=== PATIENT | female | born 1985 | race Caucasian/White ===

== ENCOUNTER 2018-02-20 11:54 | Emergency (ER) | payer SELFPAY ==
[~2018-02-20] VITALS: Ht 157.5 cm; Wt 64.0 kg
[~2018-02-20 11:54] MED LIST: ACETTAB3 OR; AMOXICILLIN500 MG OR; AMOXICILLIN500 MG PO; BACTRIM DS1 TAB OR; BACTRIM DS1 TAB PO; BACTROBAN2 % EX; BENTYL10 MG OR; BENTYL10 MG PO; BENTYL20 MG OR; CIPRO500 MG OR; CLINDAMYCIN HC150 MG PO; DOXYCYCLINE20 MG OR; ELIMITE5 % EX; FLEXERIL PO; KLONOPIN0.5 MG PO; LEVSIN/SL0.125 MG SL; LORTAB 10 OR; LORTAB 5 OR; LORTAB 5/3255 MG PO; LORTAB5 OR; LORTAB5 PO; MACROBID100 MG OR; MOTRIN800 MG OR; NAPROSYN500 MG OR; NAPROSYN500 MG PO; NAPROXEN250 MG PO; NAPROXEN500 MG PO; NO MEDS; ONDANSETRON4 MG OR; ONDANSETRON4 MG PO; OXYCODONE HCL5 MG PO; PENICILLN VK500 MG OR; PENICILLN VK500 MG PO; PERCOCET 5/325M1 TAB OR; PERIDEX0.12 % MT; PRENATABS OR; PRILOSEC OTC20 MG OR; PROMETHAZINE25 M1 RE; REMERON30 MG PO; REMERON45 MG PO; REMERON7.5 MG OR; TRAMADOL HCL50 MG OR; TRAMADOL HCL50 MG PO; TRINESSA OR; ULTRAM50 M1 PO; ULTRAM50 MG OR; VICODIN1 TAB OR; VICOPROFEN OR; ZOFRAN ODT8 MG PO; ZOFRAN ODT8 MG SL
[2018-02-20 13:40] VITALS: BP 134/84
== END 2018-02-20 13:40 | disposition home or self-care (01) | DRG 563 ==
LOC: ED 11:54
DX: S83.92XA Sprain of unspecified site of left knee, initial encounter (principal); I10 Essential (primary) hypertension; E78.5 Hyperlipidemia, unspecified; D68.0 Von Willebrand disease; F17.210 Nicotine dependence, cigarettes, uncomplicated; V80.010A Animal-rider injured by fall from or being thrown from horse in noncollision accident, initial encounter

== ENCOUNTER 2018-03-27 10:20 | Emergency (ER) | payer SELFPAY ==
[~2018-03-27] VITALS: Ht 157.5 cm; Wt 63.6 kg
[2018-03-27 11:00] LABS: URINE BILIRUBIN - DIPSTICK NEGATIVE (NEGATIVE); URINE BLOOD DIPSTICK NEGATIVE (NEGATIVE); URINE COLOR YELLOW; URINE GLUCOSE - DIPSTICK NEGATIVE (NEGATIVE); URINE KETONE NEGATIVE (NEGATIVE); URINE LEUK ESTERASE NEGATIVE (NEGATIVE); URINE NITRITE - DIPSTICK NEGATIVE (Negative); URINE PROTEIN - DIPSTICK NEGATIVE (NEG-TRACE); URINE SPECIFIC GRAVITY <=1.005; URINE UROBILINOGEN - DIPSTICK 0.2 E.U./dL (0.2)
[2018-03-27 11:01] LABS: HEMATOCRIT 42.2 % (37.0-47.0); HEMOGLOBIN 14.7 g/dl (12.0-16.0); IMMATURE GRANULOCYTES 0.4 % (0.0-5.0); MEAN CELL VOLUME 86.1 fL CALC (80.0-100.0); MEAN CORPUSCULAR HGB CONC 34.8 g/L CALC (32.0-36.0); NEUT# 6.26 thou/uL (2.00-7.15); RED BLOOD COUNT 4.9 mill/uL (4.20-5.60)
[2018-03-27 11:06] LABS: URINE CLARITY CLEAR
[2018-03-27 11:14] LABS: ALBUMIN 4.6 g/dL (3.2-5.0); ALKALINE PHOSPHATASE 74 u/l (38-126); AMYLASE 46 u/l (30-110); ANION GAP 14 (6-22 (CALC)); BILIRUBIN, TOTAL 0.4 mg/dL (0.0-1.4); BUN 10 mg/dL (7-17); BUN/CREATININE RATIO 13 (12-20 (CALC)); CARBON DIOXIDE 25 mmol/l (22-30); CHLORIDE 107 mmol/l (95-108); CREATININE 0.8 mg/dL (0.5-1.0); GFR > 60 ML/MIN (>=60 (CALC)); GFR FOR AFR.AMER. > 60 ML/MIN (>=60 (CALC)); LIPASE 92 u/l (23-300); POTASSIUM 4.1 mmol/l (3.5-5.1); SGOT/AST 23 u/l (14-36); SGPT/ALT 28 u/l (9-52); SODIUM 143 mmol/l (137-146); TOTAL PROTEIN 7.8 g/dL (6.3-8.2)
[2018-03-27] MEDS ORDERED: FLEXERIL PO (16:00)
[2018-03-27] MEDS ORDERED: NAPROSYN500 MG PO (16:00)
[2018-03-27 17:00] VITALS: BP 152/80
== END 2018-03-27 17:00 | disposition home or self-care (01) | DRG 556 ==
LOC: ED 10:20
PROVIDERS: Emergency Medicine
DX: M79.1 Myalgia (principal); D68.0 Von Willebrand disease; I10 Essential (primary) hypertension; E78.5 Hyperlipidemia, unspecified; F17.210 Nicotine dependence, cigarettes, uncomplicated

== ENCOUNTER 2018-04-14 15:27 | Emergency (ER) | payer SELFPAY ==
[~2018-04-14] VITALS: Ht 157.5 cm; Wt 63.0 kg
[2018-04-14] MEDS ORDERED: AMOXICILLIN500 M2 PO (15:46)
[2018-04-14] MEDS ORDERED: TORADOL PO (15:46)
[2018-04-14 15:55] VITALS: BP 141/87
== END 2018-04-14 15:55 | disposition home or self-care (01) | DRG 158 ==
LOC: ED 15:27
DX: K08.89 Other specified disorders of teeth and supporting structures (principal); I10 Essential (primary) hypertension; E78.5 Hyperlipidemia, unspecified; D68.0 Von Willebrand disease; F17.210 Nicotine dependence, cigarettes, uncomplicated

== ENCOUNTER 2019-02-14 10:29 | Emergency (ER) | payer SELFPAY ==
[~2019-02-14] VITALS: Ht 157.5 cm; Wt 70.0 kg
[~2019-02-14 10:29] MED LIST changes: +AMOXICILLIN500 M2 PO; +TORADOL PO
[2019-02-14 11:05] LABS: HEMATOCRIT 42.3 % (37.0-47.0); HEMOGLOBIN 14.3 g/dl (12.0-16.0); IMMATURE GRANULOCYTES 0.4 % (0.0-5.0); MEAN CELL VOLUME 86.5 fL CALC (80.0-100.0); MEAN CORPUSCULAR HGB 29.2 pG CALC (26.0-32.0); MEAN CORPUSCULAR HGB CONC 33.8 g/L CALC (32.0-36.0); NEUT# 4.64 thou/uL (2.00-7.15); RED BLOOD COUNT 4.89 mill/uL (4.20-5.60); RED CELL DISTRI WIDTH 11.9 % (11.5-15.5)
[2019-02-14 11:06] LABS: URINE BILIRUBIN - DIPSTICK NEGATIVE (NEGATIVE); URINE BLOOD DIPSTICK NEGATIVE (NEGATIVE); URINE COLOR YELLOW; URINE GLUCOSE - DIPSTICK NEGATIVE (NEGATIVE); URINE KETONE NEGATIVE (NEGATIVE); URINE LEUK ESTERASE NEGATIVE (NEGATIVE); URINE NITRITE - DIPSTICK NEGATIVE (Negative); URINE PROTEIN - DIPSTICK NEGATIVE (NEG-TRACE); URINE UROBILINOGEN - DIPSTICK 0.2 E.U./dL (0.2)
[2019-02-14 11:20] LABS: ALKALINE PHOSPHATASE 69 u/l (38-126); ANION GAP 15 (6-22 (CALC)); BILIRUBIN, TOTAL 0.4 mg/dL (0.0-1.4); BUN 7 mg/dL (7-17); BUN/CREATININE RATIO 10 (12-20 (CALC)); CARBON DIOXIDE 26 mmol/l (22-30); CHLORIDE 107 mmol/l (95-108); CREATININE 0.6 mg/dL (0.5-1.0); GFR > 60 ML/MIN (>=60 (CALC)); GFR FOR AFR.AMER. > 60 ML/MIN (>=60 (CALC)); SGOT/AST 28 u/l (14-36); SODIUM 144 mmol/l (137-146); TOTAL PROTEIN 8.6 g/dL (6.3-8.2)
[2019-02-14] MEDS ORDERED: LISINOPRIL10 MG PO (11:22)
[2019-02-14] MEDS ORDERED: ZOFRAN4 MG/TAB PO (13:10)
[2019-02-14 13:21] VITALS: BP 143/91
== END 2019-02-14 13:42 | disposition home or self-care (01) | DRG 392 ==
LOC: ED 10:29
PROVIDERS: Family Medicine
DX: K52.9 Noninfective gastroenteritis and colitis, unspecified (principal); I10 Essential (primary) hypertension; E78.5 Hyperlipidemia, unspecified; F17.200 Nicotine dependence, unspecified, uncomplicated
CPT/HCPCS: Q9967

== ENCOUNTER 2019-04-17 12:16 | Emergency (ER) | payer OTHER ==
[~2019-04-17] VITALS: Ht 157.5 cm; Wt 70.0 kg
[~2019-04-17 12:16] MED LIST changes: +LISINOPRIL10 MG PO; +ZOFRAN4 MG/TAB PO
[2019-04-17 13:08] VITALS: BP 183/114
[2019-04-17] MEDS ORDERED: TYLENOL # 31 TA1 PO (14:00)
== END 2019-04-17 14:10 | disposition home or self-care (01) ==
LOC: ED 12:16
DX: K02.9 Dental caries, unspecified (principal); I10 Essential (primary) hypertension; D68.0 Von Willebrand disease; F17.200 Nicotine dependence, unspecified, uncomplicated

== ENCOUNTER 2019-05-08 08:05 | Emergency (ER) | payer OTHER ==
[~2019-05-08] VITALS: Ht 157.5 cm; Wt 81.0 kg
[~2019-05-08 08:05] MED LIST changes: +TYLENOL # 31 TA1 PO
[2019-05-08 08:46] LABS: HEMATOCRIT 41.9 % (37.0-47.0); HEMOGLOBIN 14.4 g/dl (12.0-16.0); IMMATURE GRANULOCYTES 0.6 % (0.0-5.0); MEAN CELL VOLUME 85.3 fL CALC (80.0-100.0); MEAN CORPUSCULAR HGB 29.3 pG CALC (26.0-32.0); MEAN CORPUSCULAR HGB CONC 34.4 g/L CALC (32.0-36.0); NEUT# 5.34 thou/uL (2.00-7.15); RED BLOOD COUNT 4.91 mill/uL (4.20-5.60); RED CELL DISTRI WIDTH 11.9 % (11.5-15.5)
[2019-05-08 09:05] LABS: URINE COLOR YELLOW
[2019-05-08 09:06] LABS: URINE BILIRUBIN - DIPSTICK NEGATIVE (NEGATIVE); URINE GLUCOSE - DIPSTICK NEGATIVE (NEGATIVE); URINE KETONE Negative (NEGATIVE)
[2019-05-08 09:07] LABS: URINE BLOOD DIPSTICK NEGATIVE (NEGATIVE); URINE NITRITE - DIPSTICK NEGATIVE (Negative); URINE PROTEIN - DIPSTICK NEGATIVE (NEG-TRACE); URINE SPECIFIC GRAVITY 1.005; URINE UROBILINOGEN - DIPSTICK Negative E.U./dL (0.2)
[2019-05-08 09:08] LABS: URINE LEUK ESTERASE NEGATIVE (NEGATIVE)
[2019-05-08 09:12] LABS: ALBUMIN 4.8 g/dL (3.2-5.0); ALKALINE PHOSPHATASE 77 u/l (38-126); ANION GAP 13 (6-22 (CALC)); BILIRUBIN, TOTAL 0.4 mg/dL (0.0-1.4); BUN 4 mg/dL (7-17); BUN/CREATININE RATIO 6 (12-20 (CALC)); CARBON DIOXIDE 26 mmol/l (22-30); CHLORIDE 105 mmol/l (95-108); CREATININE 0.7 mg/dL (0.5-1.0); GFR > 60 ML/MIN (>=60 (CALC)); GFR FOR AFR.AMER. > 60 ML/MIN (>=60 (CALC)); POTASSIUM 4.1 mmol/l (3.5-5.1); SGOT/AST 38 u/l (14-36); SODIUM 139 mmol/l (137-146); TOTAL PROTEIN 8.2 g/dL (6.3-8.2)
[2019-05-08] MEDS ORDERED: ONDANSETRON4 MG PO (10:39)
[2019-05-08] MEDS ORDERED: MECLIZINE25 MG PO (10:39)
[2019-05-08 11:04] VITALS: BP 145/97
== END 2019-05-08 11:14 | disposition home or self-care (01) ==
LOC: ED 08:05
PROVIDERS: Family Medicine
DX: R42 Dizziness and giddiness (principal); F17.210 Nicotine dependence, cigarettes, uncomplicated; I10 Essential (primary) hypertension; D68.0 Von Willebrand disease; R10.11 Right upper quadrant pain

== ENCOUNTER 2019-05-29 11:06 | Emergency (ER) | payer OTHER ==
[~2019-05-29] VITALS: Ht 157.5 cm; Wt 70.0 kg
[~2019-05-29 11:06] MED LIST changes: +MECLIZINE25 MG PO
[2019-05-29] MEDS ORDERED: CELEBREX200 MG PO (12:00)
[2019-05-29] MEDS ORDERED: TYLENOL # 31 TAB PO (12:00)
[2019-05-29 12:10] VITALS: BP 158/77
== END 2019-05-29 12:10 | disposition home or self-care (01) ==
LOC: ED 11:06
DX: K02.9 Dental caries, unspecified (principal); I10 Essential (primary) hypertension; F17.200 Nicotine dependence, unspecified, uncomplicated

== ENCOUNTER 2019-06-25 14:57 | Emergency (ER) | payer OTHER ==
[~2019-06-25] VITALS: Ht 157.5 cm; Wt 72.0 kg
[~2019-06-25 14:57] MED LIST changes: +CELEBREX200 MG PO; +TYLENOL # 31 TAB PO
[2019-06-25] MEDS ORDERED: LISINOPRIL10 MG PO (15:22)
[2019-06-25] MEDS ORDERED: KLONOPIN1 MG PO (15:23)
[2019-06-25] MEDS ORDERED: MIRTAZAPINE15 MG PO (15:29)
[2019-06-25 16:14] LABS: HEMATOCRIT 42.2 % (37.0-47.0); HEMOGLOBIN 14.3 g/dl (12.0-16.0); IMMATURE GRANULOCYTES 0.4 % (0.0-5.0); MEAN CELL VOLUME 86.5 fL CALC (80.0-100.0); MEAN CORPUSCULAR HGB 29.3 pG CALC (26.0-32.0); MEAN CORPUSCULAR HGB CONC 33.9 g/L CALC (32.0-36.0); NEUT# 6.02 thou/uL (2.00-7.15); RED BLOOD COUNT 4.88 mill/uL (4.20-5.60); RED CELL DISTRI WIDTH 11.9 % (11.5-15.5)
[2019-06-25 16:20] LABS: ALBUMIN 4.6 g/dL (3.2-5.0); ALKALINE PHOSPHATASE 70 u/l (38-126); ANION GAP 13 (6-22 (CALC)); BILIRUBIN, TOTAL 0.5 mg/dL (0.0-1.4); BUN 9 mg/dL (7-17); BUN/CREATININE RATIO 12 (12-20 (CALC)); CARBON DIOXIDE 26 mmol/l (22-30); CHLORIDE 104 mmol/l (95-108); CREATININE 0.7 mg/dL (0.5-1.0); GFR > 60 ML/MIN (>=60 (CALC)); GFR FOR AFR.AMER. > 60 ML/MIN (>=60 (CALC)); LIPASE 65 u/l (23-300); POTASSIUM 4.3 mmol/l (3.5-5.1); SGOT/AST 37 u/l (14-36); SODIUM 140 mmol/l (137-146); TOTAL PROTEIN 8.3 g/dL (6.3-8.2)
[2019-06-25 16:42] LABS: URINE BILIRUBIN - DIPSTICK NEGATIVE (NEGATIVE); URINE BLOOD DIPSTICK NEGATIVE (NEGATIVE); URINE COLOR YELLOW; URINE GLUCOSE - DIPSTICK NEGATIVE (NEGATIVE); URINE KETONE NEGATIVE (NEGATIVE); URINE LEUK ESTERASE NEGATIVE (NEGATIVE); URINE NITRITE - DIPSTICK NEGATIVE (Negative); URINE PROTEIN - DIPSTICK NEGATIVE (NEG-TRACE); URINE SPECIFIC GRAVITY 1.015; URINE UROBILINOGEN - DIPSTICK 0.2 E.U./dL (0.2)
[2019-06-25 17:42] VITALS: BP 140/85
== END 2019-06-25 18:20 | disposition home or self-care (01) ==
LOC: ED 14:57
PROVIDERS: Family Medicine
DX: M79.672 Pain in left foot (principal); M25.572 Pain in left ankle and joints of left foot; R10.12 Left upper quadrant pain; R07.81 Pleurodynia; W18.30XA Fall on same level, unspecified, initial encounter
CPT/HCPCS: Q9967

== ENCOUNTER 2019-07-21 11:12 | Emergency (ER) | payer OTHER ==
[~2019-07-21] VITALS: Ht 157.5 cm; Wt 70.0 kg
[~2019-07-21 11:12] MED LIST changes: +KLONOPIN1 MG PO; +MIRTAZAPINE15 MG PO
[2019-07-21] MEDS ORDERED: TAM75CAP PO (13:11)
[2019-07-21] MEDS ORDERED: TESSALON PERLE100 MG PO (13:26)
[2019-07-21 13:27] VITALS: BP 138/82
== END 2019-07-21 13:45 | disposition home or self-care (01) ==
LOC: ED 11:12
DX: R50.9 Fever, unspecified (principal); I10 Essential (primary) hypertension; D68.0 Von Willebrand disease; F17.210 Nicotine dependence, cigarettes, uncomplicated; Z20.828 Contact with and (suspected) exposure to other viral communicable diseases

== ENCOUNTER 2019-08-20 | Emergency (ER) | payer OTHER ==
[~2019-08-20] MED LIST changes: +TAM75CAP PO; +TESSALON PERLE100 MG PO
[2019-08-20] MEDS ORDERED: TYLENOL # 31 TA1 PO (20:36)
== END 2019-08-20 20:58 | disposition home or self-care (01) ==
DX: S60.222A Contusion of left hand, initial encounter (principal); I10 Essential (primary) hypertension; F17.200 Nicotine dependence, unspecified, uncomplicated; W01.0XXA Fall on same level from slipping, tripping and stumbling without subsequent striking against object, initial encounter; Y92.007 Garden or yard of unspecified non-institutional (private) residence as the place of occurrence of the external cause

== ENCOUNTER 2019-09-22 13:57 | Emergency (ER) | payer OTHER ==
[2019-09-22] MEDS ORDERED: FLEXERIL5 M1 PO (15:10)
[2019-09-22] MEDS ORDERED: FLOXIN OTIC0.3 % AD (15:10)
[2019-09-22 15:29] VITALS: BP 155/89
== END 2019-09-22 15:29 | disposition home or self-care (01) ==
LOC: ED 13:57
DX: H92.01 Otalgia, right ear (principal); S39.012A Strain of muscle, fascia and tendon of lower back, initial encounter; I10 Essential (primary) hypertension; D68.0 Von Willebrand disease; F17.210 Nicotine dependence, cigarettes, uncomplicated; X58.XXXA Exposure to other specified factors, initial encounter

== ENCOUNTER 2019-10-03 | Emergency (ER) | payer OTHER ==
[~2019-10-03] MED LIST changes: +FLEXERIL5 M1 PO; +FLOXIN OTIC0.3 % AD
[2019-10-03 15:06] LABS: HEMATOCRIT 38.6 % (37.0-47.0); HEMOGLOBIN 13.1 g/dl (12.0-16.0); IMMATURE GRANULOCYTES 0.2 % (0.0-5.0); MEAN CELL VOLUME 85.4 fL CALC (80.0-100.0); MEAN CORPUSCULAR HGB CONC 33.9 g/L CALC (32.0-36.0); NEUT# 4.61 thou/uL (2.00-7.15); RED BLOOD COUNT 4.52 mill/uL (4.20-5.60); RED CELL DISTRI WIDTH 11.9 % (11.5-15.5)
[2019-10-03 15:24] LABS: ALBUMIN 4.2 g/dL (3.2-5.0); ALKALINE PHOSPHATASE 68 u/l (38-126); AMYLASE 38 u/l (30-110); ANION GAP 12 (6-22 (CALC)); BILIRUBIN, TOTAL 0.3 mg/dL (0.0-1.4); BUN 9 mg/dL (7-17); BUN/CREATININE RATIO 11 (12-20 (CALC)); CARBON DIOXIDE 25 mmol/l (22-30); CHLORIDE 104 mmol/l (95-108); CREATININE 0.9 mg/dL (0.5-1.0); GFR > 60 ML/MIN (>=60 (CALC)); GFR FOR AFR.AMER. > 60 ML/MIN (>=60 (CALC)); LIPASE 81 u/l (23-300); POTASSIUM 4.1 mmol/l (3.5-5.1); SGOT/AST 28 u/l (14-36); SODIUM 137 mmol/l (137-146); TOTAL PROTEIN 7.2 g/dL (6.3-8.2)
[2019-10-03 18:03] LABS: URINE BILIRUBIN - DIPSTICK NEGATIVE (NEGATIVE); URINE BLOOD DIPSTICK NEGATIVE (NEGATIVE); URINE COLOR YELLOW; URINE GLUCOSE - DIPSTICK NEGATIVE (NEGATIVE); URINE KETONE NEGATIVE (NEGATIVE); URINE LEUK ESTERASE NEGATIVE (NEGATIVE); URINE NITRITE - DIPSTICK NEGATIVE (Negative); URINE PROTEIN - DIPSTICK NEGATIVE (NEG-TRACE); URINE SPECIFIC GRAVITY 1.015; URINE UROBILINOGEN - DIPSTICK 0.2 E.U./dL (0.2)
[2019-10-03 18:06] LABS: BARBITURATES NEGATIVE (NEGATIVE); COCAINE NEGATIVE (NEGATIVE); METHADONE NEGATIVE (NEGATIVE); TETRAHYDROCANNABIONOL POSITIVE (NEGATIVE); TRICYLIC ANTIDEPRESSANTS NEGATIVE (NEGATIVE)
[2019-10-03 18:07] LABS: OXCYCODONE NEGATIVE (NEGATIVE)
[2019-10-03] MEDS ORDERED: PERCOGESI1 PO ×2 (18:16→18:55)
== END 2019-10-03 18:46 | disposition home or self-care (01) ==
PROVIDERS: Family Medicine
DX: R10.30 Lower abdominal pain, unspecified (principal); F11.90 Opioid use, unspecified, uncomplicated; I10 Essential (primary) hypertension; D68.0 Von Willebrand disease; F17.210 Nicotine dependence, cigarettes, uncomplicated
CPT/HCPCS: Q9967

== ENCOUNTER 2019-12-05 | Emergency (ER) | payer OTHER ==
[~2019-12-05] MED LIST changes: +PERCOGESI1 PO
== END 2019-12-05 01:54 | disposition home or self-care (01) ==
DX: S61.212A Laceration without foreign body of right middle finger without damage to nail, initial encounter (principal); I10 Essential (primary) hypertension; F17.210 Nicotine dependence, cigarettes, uncomplicated; W25.XXXA Contact with sharp glass, initial encounter; Y92.009 Unspecified place in unspecified non-institutional (private) residence as the place of occurrence of the external cause

== ENCOUNTER 2020-02-27 08:51 | Emergency (ER) | payer OTHER ==
[~2020-02-27] VITALS: Ht 157.5 cm; Wt 65.9 kg
[2020-02-27] MEDS ORDERED: ACETAMIN500 M2 PO (09:18)
[2020-02-27] MEDS ORDERED: CLINDAMYCIN300 M1 PO (09:25)
[2020-02-27 10:08] VITALS: BP 151/83
== END 2020-02-27 10:08 | disposition home or self-care (01) ==
LOC: ED 08:51
DX: K08.89 Other specified disorders of teeth and supporting structures (principal); K08.409 Partial loss of teeth, unspecified cause, unspecified class; I10 Essential (primary) hypertension; D68.0 Von Willebrand disease; F17.210 Nicotine dependence, cigarettes, uncomplicated

== ENCOUNTER 2020-04-30 19:44 | Emergency (ER) | payer OTHER ==
[~2020-04-30] VITALS: Ht 157.5 cm; Wt 90.0 kg
[~2020-04-30 19:44] MED LIST changes: +ACETAMIN500 M2 PO; +CLINDAMYCIN300 M1 PO
[2020-04-30 20:54] VITALS: BP 124/70
[2020-04-30] MEDS ORDERED: ANTIFUNGAL TOP (20:56)
== END 2020-04-30 21:01 | disposition home or self-care (01) ==
LOC: ED 19:44
DX: B35.0 Tinea barbae and tinea capitis (principal); I10 Essential (primary) hypertension; D68.0 Von Willebrand disease; F17.210 Nicotine dependence, cigarettes, uncomplicated

== ENCOUNTER 2020-05-20 21:12 | Emergency (ER) | payer OTHER ==
[~2020-05-20] VITALS: Ht 157.5 cm; Wt 64.0 kg
[~2020-05-20 21:12] MED LIST changes: +ANTIFUNGAL TOP
[2020-05-20 22:35] LABS: HEMATOCRIT 37.7 % (37.0-47.0); HEMOGLOBIN 12.8 g/dl (12.0-16.0); IMMATURE GRANULOCYTES 0.3 % (0.0-5.0); MEAN CELL VOLUME 87.5 fL CALC (80.0-100.0); MEAN CORPUSCULAR HGB 29.7 pG CALC (26.0-32.0); NEUT# 5.27 thou/uL (2.00-7.15); RED BLOOD COUNT 4.31 mill/uL (4.20-5.60); RED CELL DISTRI WIDTH 11.7 % (11.5-15.5)
[2020-05-20 22:36] LABS: URINE BILIRUBIN - DIPSTICK NEGATIVE (NEGATIVE); URINE BLOOD DIPSTICK SMALL (NEGATIVE); URINE COLOR YELLOW; URINE GLUCOSE - DIPSTICK NEGATIVE (NEGATIVE); URINE KETONE NEGATIVE (NEGATIVE); URINE NITRITE - DIPSTICK NEGATIVE (Negative); URINE PROTEIN - DIPSTICK NEGATIVE (NEG-TRACE); URINE SPECIFIC GRAVITY >=1.030; URINE UROBILINOGEN - DIPSTICK 0.2 E.U./dL (0.2)
[2020-05-20 22:40] LABS: URINE LEUK ESTERASE SMALL (NEGATIVE)
[2020-05-20 22:45] LABS: URINE CALCIUM OXALATE CRYSTALS FEW lpf; URINE SQUAMOUS EPITHELIAL CELL FEW EPI/hpf (0-FEW)
[2020-05-20 22:51] LABS: ALBUMIN 4.3 g/dL (3.2-5.0); ALKALINE PHOSPHATASE 68 u/l (38-126); AMYLASE 52 u/l (30-110); ANION GAP 10 (6-22 (CALC)); BILIRUBIN, TOTAL 0.3 mg/dL (0.0-1.4); BUN 13 mg/dL (7-17); BUN/CREATININE RATIO 16 (12-20 (CALC)); CARBON DIOXIDE 25 mmol/l (22-30); CHLORIDE 106 mmol/l (95-108); CREATININE 0.8 mg/dL (0.5-1.0); GFR > 60 ML/MIN (>=60 (CALC)); GFR FOR AFR.AMER. > 60 ML/MIN (>=60 (CALC)); LIPASE 239 u/l (23-300); POTASSIUM 3.9 mmol/l (3.5-5.1); SGOT/AST 21 u/l (14-36); SODIUM 137 mmol/l (137-146); TOTAL PROTEIN 7.2 g/dL (6.3-8.2)
[2020-05-20] MEDS ORDERED: TYLENOL # 31 TAB PO (23:19)
[2020-05-20] MEDS ORDERED: REMERON15 MG PO (23:33)
[2020-05-20 23:40] VITALS: BP 97/54
== END 2020-05-20 23:46 | disposition home or self-care (01) ==
LOC: ED 21:12
PROVIDERS: Family Medicine
DX: R10.11 Right upper quadrant pain (principal); R10.31 Right lower quadrant pain; R10.33 Periumbilical pain; I10 Essential (primary) hypertension; D68.0 Von Willebrand disease; E78.5 Hyperlipidemia, unspecified; F17.200 Nicotine dependence, unspecified, uncomplicated

== ENCOUNTER 2020-08-09 15:55 | Emergency (ER) | payer OTHER ==
[~2020-08-09] VITALS: Ht 157.5 cm; Wt 65.8 kg
[~2020-08-09 15:55] MED LIST changes: +REMERON15 MG PO
[2020-08-09 18:00] VITALS: BP 110/68
== END 2020-08-09 18:00 | disposition home or self-care (01) ==
LOC: ED 15:55
DX: S76.011A Strain of muscle, fascia and tendon of right hip, initial encounter (principal); S39.012A Strain of muscle, fascia and tendon of lower back, initial encounter; I10 Essential (primary) hypertension; D68.0 Von Willebrand disease; E78.5 Hyperlipidemia, unspecified; F17.210 Nicotine dependence, cigarettes, uncomplicated; V28.2XXA Unspecified motorcycle rider injured in noncollision transport accident in nontraffic accident, initial encounter; Y93.I9 Activity, other involving external motion; Y92.410 Unspecified street and highway as the place of occurrence of the external cause

== ENCOUNTER 2022-06-18 13:48 | Emergency (ER) | payer OTHER ==
[~2022-06-18] VITALS: Ht 157.5 cm; Wt 68.0 kg
[2022-06-18] VITALS (7 sets, daily range): BP systolic 151–194; BP diastolic 110–130
[2022-06-18] MEDS ORDERED: CLINDAMYCIN300 M1 PO (15:06)
[2022-06-18] MEDS ORDERED: ZESTRIL10 M1 PO (15:29)
== END 2022-06-18 16:17 | disposition home or self-care (01) ==
LOC: ED 13:48
DX: K08.89 Other specified disorders of teeth and supporting structures (principal); I10 Essential (primary) hypertension; D68.00 Von Willebrand disease, unspecified; E78.00 Pure hypercholesterolemia, unspecified; F17.200 Nicotine dependence, unspecified, uncomplicated

== ENCOUNTER 2022-07-01 13:24 | Emergency (ER) | payer OTHER ==
[~2022-07-01] VITALS: Ht 157.5 cm; Wt 68.2 kg
[2022-07-01] VITALS (10 sets, daily range): BP systolic 108–134; BP diastolic 75–84
[~2022-07-01 13:24] MED LIST changes: +ZESTRIL10 M1 PO
[2022-07-01 14:07] LABS: HEMATOCRIT 38.4 % (37.0-47.0); HEMOGLOBIN 13.1 g/dl (12.0-16.0); IMMATURE GRANULOCYTES 0.1 % (0.0-5.0); MEAN CELL VOLUME 88.9 fL CALC (80.0-100.0); MEAN CORPUSCULAR HGB 30.3 pG CALC (26.0-32.0); MEAN CORPUSCULAR HGB CONC 34.1 g/dL CAL (32.0-36.0); NEUT# 2.98 thou/uL (2.00-7.15); RED BLOOD COUNT 4.32 mill/uL (4.20-5.60); RED CELL DISTRI WIDTH 12.6 % (11.5-15.5)
[2022-07-01 14:10] LABS: URINE BILIRUBIN - DIPSTICK NEGATIVE (NEGATIVE); URINE BLOOD DIPSTICK NEGATIVE (NEGATIVE); URINE COLOR YELLOW; URINE GLUCOSE - DIPSTICK NEGATIVE (NEGATIVE); URINE KETONE NEGATIVE (NEGATIVE); URINE LEUK ESTERASE NEGATIVE (NEGATIVE); URINE PROTEIN - DIPSTICK NEGATIVE (NEG-TRACE); URINE SPECIFIC GRAVITY <=1.005; URINE UROBILINOGEN - DIPSTICK 0.2 E.U./dL (0.2)
[2022-07-01 14:13] LABS: URINE NITRITE - DIPSTICK NEGATIVE (Negative)
[2022-07-01 14:23] LABS: ALBUMIN 4.3 g/dL (3.2-5.0); ALKALINE PHOSPHATASE 71 u/l (38-126); ANION GAP 11 (6-22 (CALC)); BILIRUBIN, TOTAL 0.2 mg/dL (0.0-1.4); BUN 6 mg/dL (7-17); BUN/CREATININE RATIO 9 (12-20 (CALC)); CARBON DIOXIDE 29 mmol/l (22-30); CHLORIDE 106 mmol/l (95-108); CREATININE 0.7 mg/dL (0.5-1.0); GFR FOR AFR.AMER. > 60 ML/MIN (>=60 (CALC)); GFR OTHER RACES > 60 ML/MIN (>=60 (CALC)); LIPASE 67 u/l (23-300); POTASSIUM 3.5 mmol/l (3.5-5.1); SGOT/AST 33 u/l (14-36); SODIUM 143 mmol/l (137-146); TOTAL PROTEIN 7.7 g/dL (6.3-8.2)
[2022-07-01] MEDS ORDERED: ONDANSETRON4 MG PO (17:19)
[2022-07-01] MEDS ORDERED: PROTONIX40 M2 PO (17:19)
[2022-07-01] MEDS ORDERED: DICYCLOMINE10 MG PO (17:19)
== END 2022-07-01 17:57 | disposition home or self-care (01) ==
LOC: ED 13:24
PROVIDERS: Nurse Practitioner
DX: R10.11 Right upper quadrant pain (principal); I10 Essential (primary) hypertension; E78.00 Pure hypercholesterolemia, unspecified; D68.00 Von Willebrand disease, unspecified; F17.200 Nicotine dependence, unspecified, uncomplicated
CPT/HCPCS: Q9967; S0164

== ENCOUNTER 2023-02-07 22:00 | Emergency (ER) | payer OTHER ==
[~2023-02-07] VITALS: Ht 157.5 cm; Wt 58.0 kg
[~2023-02-07 22:00] MED LIST changes: +DICYCLOMINE10 MG PO; +PROTONIX40 M2 PO
[2023-02-07] MEDS ORDERED: AMOX/K CLAV875 M1 PO (22:40)
[2023-02-07 23:33] VITALS: BP 111/78
== END 2023-02-07 23:33 | disposition home or self-care (01) ==
LOC: ED 22:00
DX: K04.7 Periapical abscess without sinus (principal); K02.9 Dental caries, unspecified; I10 Essential (primary) hypertension; E78.00 Pure hypercholesterolemia, unspecified; D68.00 Von Willebrand disease, unspecified; F17.200 Nicotine dependence, unspecified, uncomplicated

== ENCOUNTER 2023-04-06 14:28 | Emergency (ER) | payer OTHER ==
[2023-04-06] VITALS (12 sets, daily range): BP systolic 101–128; BP diastolic 67–93
[~2023-04-06] VITALS: Ht 157.5 cm; Wt 54.4 kg
[~2023-04-06 14:28] MED LIST changes: +AMOX/K CLAV875 M1 PO; +PREVACID30 M1 PO
[2023-04-06] MEDS ORDERED: DICLOFENAC SODIUM2 % TD (16:17)
== END 2023-04-06 17:10 | disposition home or self-care (01) ==
LOC: ED 14:28
DX: S93.401A Sprain of unspecified ligament of right ankle, initial encounter (principal); S80.12XA Contusion of left lower leg, initial encounter; I10 Essential (primary) hypertension; D68.00 Von Willebrand disease, unspecified; E78.00 Pure hypercholesterolemia, unspecified; F17.200 Nicotine dependence, unspecified, uncomplicated; X50.0XXA Overexertion from strenuous movement or load, initial encounter; Y93.89 Activity, other specified; V48.0XXA Car driver injured in noncollision transport accident in nontraffic accident, initial encounter; Y92.008 Other place in unspecified non-institutional (private) residence as the place of occurrence of the external cause

== ENCOUNTER 2023-04-09 14:33 | Emergency (ER) | payer OTHER ==
[~2023-04-09] VITALS: Ht 157.5 cm; Wt 54.4 kg
[2023-04-09] VITALS (8 sets, daily range): BP systolic 128–157; BP diastolic 89–103
[~2023-04-09 14:33] MED LIST changes: +DICLOFENAC SODIUM2 % TD
[2023-04-09 15:40] LABS: BASO% 0.3 % (0-3); EOS% 1.1 % (0-8); HEMOGLOBIN 13.7 g/dl (12.0-16.0); IMMATURE GRANULOCYTES 0.4 % (0.0-5.0); LYMPH% 34.5 % (15-41); MEAN CELL VOLUME 87.3 fL CALC (80.0-100.0); MEAN CORPUSCULAR HGB 29.9 pG CALC (26.0-32.0); MEAN CORPUSCULAR HGB CONC 34.3 g/dL CAL (32.0-36.0); NEUT# 5.49 thou/uL (2.00-7.15); NEUT% 54.7 % (42-76); RED BLOOD COUNT 4.58 mill/uL (4.20-5.60); RED CELL DISTRI WIDTH 12.3 % (11.5-15.5)
[2023-04-09 15:45] LABS: ALBUMIN 4.7 g/dL (3.2-5.0); ALKALINE PHOSPHATASE 60 u/l (38-126); BUN 5 mg/dL (7-17); BUN/CREATININE RATIO 6 (12-20 (CALC)); CARBON DIOXIDE 26 mmol/l (22-30); CHLORIDE 105 mmol/l (95-108); CREATININE 0.9 mg/dL (0.5-1.0); GFR FOR AFR.AMER. > 60 ML/MIN (>=60 (CALC)); GFR OTHER RACES > 60 ML/MIN (>=60 (CALC)); SGOT/AST 27 u/l (14-36); SODIUM 141 mmol/l (137-146); TOTAL PROTEIN 8.2 g/dL (6.3-8.2)
[2023-04-09 15:47] LABS: ANION GAP 13 (6-22 (CALC)); POTASSIUM 3.1 mmol/l (3.5-5.1)
[2023-04-09 15:48] LABS: BILIRUBIN, TOTAL 0.8 mg/dL (0.02-1.3)
== END 2023-04-09 16:49 | disposition home or self-care (01) ==
LOC: ED 14:33
PROVIDERS: Nurse Practitioner Family
DX: M54.50 Low back pain, unspecified (principal); M25.551 Pain in right hip; I10 Essential (primary) hypertension; D68.00 Von Willebrand disease, unspecified; E78.00 Pure hypercholesterolemia, unspecified; F17.210 Nicotine dependence, cigarettes, uncomplicated

== ENCOUNTER 2023-04-18 01:28 | Emergency (ER) | payer OTHER ==
[~2023-04-18] VITALS: Ht 157.5 cm; Wt 56.0 kg
[2023-04-18] MEDS ORDERED: KLONOPIN0.5 MG PO (02:00)
[2023-04-18] MEDS ORDERED: REMERON15 MG PO (02:01)
[2023-04-18 04:35] VITALS: BP 128/78
== END 2023-04-18 04:35 | disposition home or self-care (01) ==
LOC: ED 01:28
DX: S93.401A Sprain of unspecified ligament of right ankle, initial encounter (principal); I10 Essential (primary) hypertension; D68.00 Von Willebrand disease, unspecified; E78.5 Hyperlipidemia, unspecified; F17.200 Nicotine dependence, unspecified, uncomplicated; X58.XXXA Exposure to other specified factors, initial encounter; Z76.5 Malingerer [conscious simulation]; Z88.8 Allergy status to other drugs, medicaments and biological substances

== ENCOUNTER 2023-04-30 01:37 | Emergency (ER) | payer OTHER ==
[~2023-04-30] VITALS: Ht 157.5 cm; Wt 58.0 kg
[2023-04-30] VITALS (12 sets, daily range): BP systolic 114–145; BP diastolic 69–83
== END 2023-04-30 02:13 | disposition home or self-care (01) ==
LOC: ED 01:37
DX: K08.89 Other specified disorders of teeth and supporting structures (principal); K08.409 Partial loss of teeth, unspecified cause, unspecified class; F11.90 Opioid use, unspecified, uncomplicated; I10 Essential (primary) hypertension; D68.00 Von Willebrand disease, unspecified; E78.00 Pure hypercholesterolemia, unspecified; F17.200 Nicotine dependence, unspecified, uncomplicated; Z88.5 Allergy status to narcotic agent

== ENCOUNTER 2023-05-02 11:16 | Emergency (ER) | payer OTHER ==
[~2023-05-02] VITALS: Ht 157.5 cm; Wt 56.2 kg
[2023-05-02 12:48] VITALS: BP 158/86
[2023-05-02 13:02] VITALS: BP 141/89
[2023-05-02 13:15] VITALS: BP 141/99
== END 2023-05-02 13:19 | disposition home or self-care (01) ==
LOC: ED 11:16
DX: K08.89 Other specified disorders of teeth and supporting structures (principal); Z76.5 Malingerer [conscious simulation]; K08.109 Complete loss of teeth, unspecified cause, unspecified class; I10 Essential (primary) hypertension; D68.00 Von Willebrand disease, unspecified; E78.00 Pure hypercholesterolemia, unspecified; F17.200 Nicotine dependence, unspecified, uncomplicated

== ENCOUNTER 2024-02-10 13:06 | Emergency (ER) | payer OTHER ==
[~2024-02-10] VITALS: Ht 157.5 cm; Wt 54.4 kg
[2024-02-10] VITALS (15 sets, daily range): BP systolic 154–187; BP diastolic 109–152
[~2024-02-10 13:06] MED LIST changes: +PREDNISONE10 MG PO
[2024-02-10] MEDS ORDERED: MORPHINE SULFATE 4 MG/ML VIAL IV ONE (13:25)
[2024-02-10] MEDS ORDERED: METHOCARBAMOL 500 MG/TAB PO ONE (13:25)
[2024-02-10 13:58] LABS: BASO% 0.4 % (0-3); EOS% 1.3 % (0-8); HEMATOCRIT 38.4 % (37.0-47.0); HEMOGLOBIN 13.6 g/dl (12.0-16.0); IMMATURE GRANULOCYTES 0.4 % (0.0-5.0); LYMPH% 34.9 % (15-41); MEAN CELL VOLUME 84.4 fL CALC (80.0-100.0); MEAN CORPUSCULAR HGB 29.9 pG CALC (26.0-32.0); MEAN CORPUSCULAR HGB CONC 35.4 g/dL CAL (32.0-36.0); MONO% 6.8 % (2-13); NEUT# 4.32 thou/uL (2.00-7.15); NEUT% 56.2 % (42-76); RED BLOOD COUNT 4.55 mill/uL (4.20-5.60); RED CELL DISTRI WIDTH 11.7 % (11.5-15.5)
[2024-02-10 14:14] LABS: ALBUMIN 4.5 g/dL (3.2-5.0); CREATININE 0.8 mg/dL (0.5-1.0); POTASSIUM 3.6 mmol/l (3.5-5.1); TOTAL PROTEIN 8.3 g/dL (6.3-8.2)
[2024-02-10 14:16] LABS: BILIRUBIN, TOTAL 0.3 mg/dL (0.02-1.3)
[2024-02-10] MEDS ORDERED: oxyCODONE 5MG/ ACETAMINOPHEN 325MG TAB PO ONE (14:45)
[2024-02-10] MEDS ORDERED: PERCOCET 5/325M1 TAB PO (15:32)
[2024-02-10] MEDS ORDERED: FLEXERIL5 M1 PO (15:32)
== END 2024-02-10 15:55 | disposition home or self-care (01) ==
LOC: ED 13:06
PROVIDERS: Nurse Practitioner Family
DX: S39.012A Strain of muscle, fascia and tendon of lower back, initial encounter (principal); I10 Essential (primary) hypertension; D68.00 Von Willebrand disease, unspecified; E78.00 Pure hypercholesterolemia, unspecified; F17.200 Nicotine dependence, unspecified, uncomplicated; X50.9XXA Other and unspecified overexertion or strenuous movements or postures, initial encounter